=== PATIENT | female | born 1980 | race Caucasian/White ===

== ENCOUNTER → 2020-08-31 15:35 | Outpatient (CLI) | payer OTHER, SELFPAY ==
[2020-08-31] MEDS: COVID-19 VACC(MODERNA-1)/PF 100 MCG/0.5 ML VIAL IM (15:47)
== END ==
PROVIDERS: Visit Provider Internal Medicine
DX: Z23 Encounter for immunization (principal)
CPT/HCPCS: 0011A; 91301

== ENCOUNTER → 2020-09-27 16:35 | Outpatient (CLI) | payer OTHER, SELFPAY ==
[2020-09-27] MEDS: COVID-19 VACC #2, MRNA(MOD) 100 MCG/0.5 ML VIAL IM (16:39)
== END ==
PROVIDERS: Visit Provider Internal Medicine
DX: Z23 Encounter for immunization (principal)
CPT/HCPCS: 0012A; 91301

== ENCOUNTER → 2023-09-11 08:09 | Outpatient (CLI) | payer OTHER, SELFPAY ==
--- NOTE | 2023-09-11 08:10 | DI.MG.S_ITS ---
BILATERAL DIGITAL SCREENING MAMMOGRAM 3D/2D WITH CAD: 09/11/2023 CLINICAL: Routine screening. Baseline exam. Family history of breast cancer. No prior exams were available for comparison. Both breasts are heterogeneously dense, which may obscure small masses (category c / 51-75% glandular tissue). Current study was also evaluated with a Computer Aided Detection (CAD) system. No significant masses, calcifications, or other findings are seen in either breast. IMPRESSION: NEGATIVE There is no mammographic evidence of malignancy. A 1 year screening mammogram is recommended. Based on the Tyrer Cuzick model (a risk assessment model) the patient's lifetime risk is 12.9% and her 10 year risk is 1.9%. According to the ACR, ACS, and NCCN guidelines, an annual breast MRI exam along with mammogram is recommended if the patient's lifetime risk is 20% or greater. This exam was interpreted at Station ID: [id number]. NOTE: For mammograms, a report in lay terms will be sent to the patient. Approximately 15% of breast malignancies will not be visualized mammographically. In the management of a palpable breast mass, a negative mammogram must not discourage biopsy of a clinically suspicious lesion. Electronically Signed By: Thad pena/[email or web address]:09/11/2023 17:45:17 letter sent: Normal Exam ACR BI-RADS Category 1: Negative 3341F
== END ==
PROVIDERS: PCP Family Medicine; Referring Provider Family Medicine; Visit Provider Family Medicine
DX: Z12.31 Encounter for screening mammogram for malignant neoplasm of breast (principal); Z80.3 Family history of malignant neoplasm of breast; R92.333 Mammographic heterogeneous density, bilateral breasts
CPT/HCPCS: 77063; 77067

== ENCOUNTER → 2023-10-16 07:16 | Outpatient (CLI) | payer OTHER, SELFPAY ==
[2023-10-16 08:04] LABS: Add Manual Diff / Slide Review NO; Basophils Absolute Auto 0 /uL (0-100); Basophils Percent Auto 0.5 % (0-2); Eosinophils Absolute Auto 100 /uL (0-450); Eosinophils Percent Auto 1.4 % (2-4); Hematocrit 40.1 % (36-46); Lymphocytes Absolute Auto 1700 /uL (1100-4500); Lymphocytes Percent Auto 26.8 % (25-40); Mean Corpuscular HGB Conc 34.9 % (30-36); Mean Corpuscular Hemoglobin 33.7 PG (26-34); Mean Corpuscular Volume 96.4 fL (80-100); Monocytes Absolute Auto 600 /uL (0-900); Monocytes Percent Auto 8.7 % (3-14); Neutrophils Absolute Auto 4100 /uL (1500-7000); Neutrophils Percent Auto 62.6 % (50-75); Platelet Count 192 X10^3/uL (150-400); Red Blood Cell Count 4.16 X10^6/uL (4.0-5.2); White Blood Cell Count 6.5 X10^3/uL (4.5-11.0)
[2023-10-16 08:24] LABS: Alanine Aminotransferase 26 IU/L (<35); Albumin 4.5 g/dL (3.5-5.0); Albumin Globulin Ratio 1.7 (1.0-2.8); Alkaline Phosphatase 73 U/L (38-126); Aspartate Aminotransferase 26 IU/L (14-36); Bilirubin Total 0.9 mg/dL (0.2-1.3); Blood Urea Nitrogen 16 mg/dL (7-17); Calcium 9.4 mg/dL (8.4-10.2); Carbon Dioxide 23 mmol/L (22-32); Chloride 104 mmol/L (98-107); Cholesterol 166 mg/dL (140-199); Estimated Glomerular Filt Rate > 60 mL/min (>60); Globulin 2.7 g/dL (1.7-4.1); Glucose 78 mg/dL (70-100); HDL Cholesterol 80 mg/dL (40-60); HEMOLYSIS < 15 (0-50); LDL Cholesterol Calculated 76 mg/dL (<100); Potassium 3.3 mmol/L (3.4-5.1); Sodium 137 mmol/L (137-145); Total Protein 7.2 g/dL (6.3-8.2); Triglycerides 48 mg/dL (35-150)
[2023-10-16 08:55] LABS: TSH w/ Reflex to FT4 2.39 uIU/mL (0.47-4.68)
== END ==
PROVIDERS: PCP Family Medicine; Referring Provider Family Medicine; Visit Provider Family Medicine
DX: Z00.00 Encounter for general adult medical examination without abnormal findings (principal)
CPT/HCPCS: 36415; 80053; 80061; 84443; 85025

== ENCOUNTER 2024-02-28 11:15 | Inpatient (IN) | payer OTHER, SELFPAY ==
--- NOTE | 2024-02-28 | PATH_ITS ---
[facility] Accession Number: [id number] No. of containers..01 Tissue . 01 Material submitted: . appendix - APPENDIX . 01 Diagnosis: APPENDIX, APPENDECTOMY: Acute and periappendicitis. [facility] 03/02/2024 1040 Local . 01 Electronically signed: . Denise Schultz MD, Pathologist NPI- [id number] . 01 Gross description: . Received in formalin with two identifiers and appendix, is a love vermiform appendix 4.7 x 0.9 cm with mesoappendix extending out to 1.7 cm. The serosa is olve to brown and roughened with adherent material consistent with exudate. The margin is inked blue, and sectioning reveals the lumen to contain brown semi-solid material and averaging 0.3 cm in diameter. The pelletier average 0.4 cm thick with no perforation or lesions identified. Biochemical Engineer sections to include the margin, one-half of the bisected distal tip, and cross-section are submitted in cassette A1. ([id number]) /[facility] 03/01/2024 0856 Local . 01 Pathologist provided ICD-10: K35.80 . 01 CPT . 552770 Specimen Comment: A courtesy copy of this report has been sent to [phone] Performed at: [address] [address], [place], [place] [id number] MD Darrel Solares MD Phone: [phone]
[2024-02-28 11:34] VITALS: BP 123/58; PULSE 62; RESP 18; TEMP 36.9; O2SAT 100; BMI 22.1
[2024-02-28] MEDS: ONDANSETRON 4 MG/2 ML INJ IV (11:59)
[2024-02-28 12:02] LABS: Add Manual Diff / Slide Review NO; Basophils Absolute Auto 0 /uL (0-100); Basophils Percent Auto 0.2 % (0-2); Eosinophils Absolute Auto 0 /uL (0-450); Hematocrit 40.9 % (36-46); Hemoglobin 14.2 g/dL (12.0-16.0); Lymphocytes Absolute Auto 1400 /uL (1100-4500); Lymphocytes Percent Auto 7.6 % (25-40); Mean Corpuscular HGB Conc 34.8 % (30-36); Mean Corpuscular Hemoglobin 33.3 PG (26-34); Mean Corpuscular Volume 95.5 fL (80-100); Monocytes Absolute Auto 1200 /uL (0-900); Monocytes Percent Auto 6.7 % (3-14); Neutrophils Absolute Auto 15300 /uL (1500-7000); Neutrophils Percent Auto 85.5 % (50-75); Platelet Count 192 X10^3/uL (150-400); Red Blood Cell Count 4.28 X10^6/uL (4.0-5.2); Red Cell Distribution Width 12.7 % (11.6-14.8); White Blood Cell Count 17.9 X10^3/uL (4.5-11.0)
[2024-02-28 12:13] LABS: Alanine Aminotransferase 29 IU/L (<35); Albumin 4.4 g/dL (3.5-5.0); Albumin Globulin Ratio 1.6 (1.0-2.8); Alkaline Phosphatase 83 U/L (38-126); Aspartate Aminotransferase 21 IU/L (14-36); BUN Creatinine Ratio 16.7 (6-22); Bilirubin Total 1.4 mg/dL (0.2-1.3); Blood Urea Nitrogen 13 mg/dL (7-17); Calcium 8.9 mg/dL (8.4-10.2); Carbon Dioxide 27 mmol/L (22-32); Chloride 104 mmol/L (98-107); Estimated Glomerular Filt Rate > 60 mL/min (>60); Globulin 2.8 g/dL (1.7-4.1); Glucose 114 mg/dL (70-100); HEMOLYSIS < 15 (0-50); Lipase 58 U/L (23-300); Potassium 3.7 mmol/L (3.4-5.1); Sodium 137 mmol/L (137-145); Total Protein 7.2 g/dL (6.3-8.2)
--- NOTE | 2024-02-28 12:34 | ED.ABDPAIN ---
HPI - Abdominal Pain <Osvaldo Davila PA-C - Last Filed: 02/28/24 15:09> General Chief Complaint: Abdominal Pain Stated Complaint: LRQ Abd Pain Time Seen by Provider: 02/28/24 12:34 Source: patient Mode of arrival: Ambulatory History of Present Illness HPI narrative: This is a 43-year-old female presents emergency department due to epigastric pain onset yesterday which she was radiated to her right lower quadrant with multiple episodes of nausea and vomiting. States she was had chills. Denies any dysuria, hematuria, urinary frequency, or any other concerning signs or symptoms. Has not eaten today. Denies any medical or surgical history. Related Data Allergies Allergy/AdvReac Type Severity Reaction Status Date / Time Pertussis Vaccines Allergy Severe High Verified 02/28/24 11:39 fever, hypoxia Review of Systems <Osvaldo Davila PA-C - Last Filed: 02/28/24 15:09> Review of Systems Narrative: GENERAL: Denies chills, fatigue, malaise, fever, sweats. HEENT: Denies sinus pain, ear pain, sore throat, difficulty swallowing, dizziness. RESPIRATORY: Denies dyspnea, cough, wheezing, hemoptysis, sputum. CARDIOVASCULAR: Denies chest pain, palpitations, orthopnea, edema, GASTROINTESTINAL: Reports nausea and vomiting as well as right lower quadrant pain nausea, vomiting, abdominal pain, denies diarrhea, constipation, melena. : Denies dysuria, frequency, incontinence, hematuria, urinary retention. MUSCULOSKELETAL: denies weakness, joint pain, or bony pain SKIN: Denies rash, skin lesions, or other NEUROLOGIC: Denies weakness, headache, numbness, change in speech, confusion, seizures, incoordination. PSYCHIATRIC: No concerning psychosocial issues. 12 point review of systems is negative except for those stated above Patient History <Osvaldo Davila PA-C - Last Filed: 02/28/24 15:09> Medical History Encounter for well adult exam without abnormal findings Plantar fasciitis (~2019) Chicken pox (~1987) Hamstring tightness of both lower extremities (~2019) Surgical History History of episiotomy Family History Father Hyperlipidemia Grandfather Mental health problem Stroke History of emphysema Grandmother Breast cancer Grandfather History of heart disease Grandmother Hypertension History of kidney cancer Hyperlipidemia Dementia Social History Smoking Status: Never smoker alcohol intake: never substance use type: does not use Smoking Status: Never smoker Substance Use Type: does not use Exam <TROY Humphreys Last Filed: 02/28/24 15:09> Narrative Exam Narrative: GENERAL: Well-developed patient, in mild distress. HEAD: Atraumatic. Normocephalic. EYES: Pupils equal round and reactive. Extraocular motions intact. No scleral icterus. No injection or drainage. ENT: Nose without bleeding, purulent drainage. Throat without erythema, tonsillar hypertrophy or exudate. Airway patent. NECK: Trachea midline. Non tender EXTREMITIES: No edema or joint tenderness. NEURO: AOx3. SKIN: No rash or erythema of visible areas Abdomen: Tenderness to palpation to the right lower quadrant Initial Vital Signs Initial Vital Signs: Vital Signs Temperature 98.5 F 02/28/24 11:34 Pulse Rate 62 02/28/24 11:34 Respiratory Rate 18 02/28/24 11:34 Blood Pressure 123/58 L 02/28/24 11:34 Pulse Oximetry 100 02/28/24 11:34 Oxygen Delivery Method Room Air 02/28/24 11:34 <Lj Islas DO - Last Filed: 02/28/24 15:26> Initial Vital Signs Initial Vital Signs: Vital Signs Temperature 98.5 F 02/28/24 11:34 Pulse Rate 62 02/28/24 11:34 Respiratory Rate 18 02/28/24 11:34 Blood Pressure 123/58 L 02/28/24 11:34 Pulse Oximetry 100 02/28/24 11:34 Oxygen Delivery Method Room Air 02/28/24 11:34 Course <TROY Humphreys Last Filed: 02/28/24 15:09> Orders Ordered: ED Orders 02/28/24 11:50 CRP [C-Reactive Protein Quant] Stat Complete Blood Count AUTO DIFF Stat Comprehensive Metabolic Panel Stat Lactate (Lactic Acid) Stat Lipase Stat 02/28/24 12:48 CT abdomen pelvis w con Stat 02/28/24 13:35 Type and Screen Stat 02/28/24 13:45 Blood Culture Stat 02/28/24 13:49 Test Urine Stat UA dip and micro [Urinalysis and Microscopic] Stat 02/28/24 14:31 Education, smoking cessation ONGOING Acetaminophen (Acetaminophen 325 Mg Tablet) 650 mg PO Q6H PRN PRN Reason: Fever/Mild Pain (1-3) Hydromorphone HCl (Hydromorphone 0.5 Mg Inj) 0.5 mg IV Q2H PRN PRN Reason: Pain, Severe (7-10) Dextrose/Sodium Chloride (Dextrose 5%-0.45% Ns) 1,000 mls @ 100 mls/hr IV CONT VEDA Last Admin: 02/28/24 15:08 Dose: 100 mls/hr Documented By: RUBY Piperacillin Sod/Tazobactam (Sod 3.375 gm/ Sodium Chloride) 100 mls @ 25 mls/hr IV Q8H VEDA Stop: 03/02/24 21:59 Ibuprofen (Ibuprofen 600 Mg Tablet) 600 mg PO Q6H PRN PRN Reason: Fever/Mild Pain (1-3) Naloxone HCl (Naloxone 0.4 Mg/Ml Vial) 0.2 mg IV Q2MIN PRN PRN Reason: Opiate Reversal Ondansetron HCl (Ondansetron 4 Mg/2 Ml Inj) 4 mg IV NOW PRN PRN Reason: Nausea And Vomiting Last Admin: 02/28/24 11:59 Dose: 4 mg Documented By: FLAVIO Ondansetron HCl (Ondansetron 4 Mg Odt) 4 mg PO NOW PRN PRN Reason: Nausea And Vomiting Oxycodone HCl (Oxycodone Ir 5 Mg Tablet) 5 mg PO Q3H PRN PRN Reason: Pain, Moderate (4-6) Discontinued Medications Piperacillin Sod/Tazobactam (Sod 4.5 gm/ Sodium Chloride) 100 mls @ 200 mls/hr IV NOW ONE Stop: 02/28/24 13:22 Last Infusion: 02/28/24 14:22 Dose: Infused Documented By: Admin: 02/28/24 13:47 Dose: 200 mls/hr Documented By: RUBY Vital Signs Vital signs: Vital Signs - 8 hr 02/28/24 11:34 02/28/24 13:57 Temperature 98.5 F 97.9 F Pulse Rate 62 63 Respiratory Rate 18 16 Blood Pressure 123/58 L 113/71 Pulse Oximetry 100 100 Oxygen Delivery Method Room Air Room Air <Lj Islas, DO - Last Filed: 02/28/24 15:26> Orders Ordered: ED Orders 02/28/24 11:50 CRP [C-Reactive Protein Quant] Stat Complete Blood Count AUTO DIFF Stat Comprehensive Metabolic Panel Stat Lactate (Lactic Acid) Stat Lipase Stat 02/28/24 12:48 CT abdomen pelvis w con Stat 02/28/24 13:35 Type and Screen Stat 02/28/24 13:45 Blood Culture Stat 02/28/24 13:49 Test Urine Stat UA dip and micro [Urinalysis and Microscopic] Stat 02/28/24 14:31 Education, smoking cessation ONGOING Acetaminophen (Acetaminophen 325 Mg Tablet) 650 mg PO Q6H PRN PRN Reason: Fever/Mild Pain (1-3) Hydromorphone HCl (Hydromorphone 0.5 Mg Inj) 0.5 mg IV Q2H PRN PRN Reason: Pain, Severe (7-10) Dextrose/Sodium Chloride (Dextrose 5%-0.45% Ns) 1,000 mls @ 100 mls/hr IV CONT VEDA Last Admin: 02/28/24 15:08 Dose: 100 mls/hr Documented By: SB Piperacillin Sod/Tazobactam (Sod 3.375 gm/ Sodium Chloride) 100 mls @ 25 mls/hr IV Q8H VEDA Stop: 03/02/24 21:59 Ibuprofen (Ibuprofen 600 Mg Tablet) 600 mg PO Q6H PRN PRN Reason: Fever/Mild Pain (1-3) Naloxone HCl (Naloxone 0.4 Mg/Ml Vial) 0.2 mg IV Q2MIN PRN PRN Reason: Opiate Reversal Ondansetron HCl (Ondansetron 4 Mg/2 Ml Inj) 4 mg IV NOW PRN PRN Reason: Nausea And Vomiting Last Admin: 02/28/24 11:59 Dose: 4 mg Documented By: RB Ondansetron HCl (Ondansetron 4 Mg Odt) 4 mg PO NOW PRN PRN Reason: Nausea And Vomiting Oxycodone HCl (Oxycodone Ir 5 Mg Tablet) 5 mg PO Q3H PRN PRN Reason: Pain, Moderate (4-6) Discontinued Medications Piperacillin Sod/Tazobactam (Sod 4.5 gm/ Sodium Chloride) 100 mls @ 200 mls/hr IV NOW ONE Stop: 02/28/24 13:22 Last Infusion: 02/28/24 14:22 Dose: Infused Documented By: Admin: 02/28/24 13:47 Dose: 200 mls/hr Documented By: RUBY Vital Signs Vital signs: Vital Signs - 8 hr 02/28/24 11:34 02/28/24 13:57 Temperature 98.5 F 97.9 F Pulse Rate 62 63 Respiratory Rate 18 16 Blood Pressure 123/58 L 113/71 Pulse Oximetry 100 100 Oxygen Delivery Method Room Air Room Air MDM - Abdominal Pain <Osvaldo Davila PA-C - Last Filed: 02/28/24 15:09> Lab Data 02/28/24 11:50 02/28/24 11:50 Labs: Lab Results 02/28/24 02/28/24 02/28/24 Range/Units 11:50 13:35 13:49 WBC 17.9 H (4.5-11.0) X10^3/uL RBC 4.28 (4.0-5.2) X10^6/uL Hgb 14.2 (12.0-16.0) g/dL Hct 40.9 (36-46) % MCV 95.5 (80-100) fL MCH 33.3 (26-34) PG MCHC 34.8 (30-36) % RDW 12.7 (11.6-14.8) % Plt Count 192 (150-400) X10^3/uL Neut % (Auto) 85.5 H (50-75) % Lymph % (Auto) 7.6 L (25-40) % Bartholomew % (Auto) 6.7 (3-14) % Eos % (Auto) 0.0 L (2-4) % Baso % (Auto) 0.2 (0-2) % Neut # (Auto) 49326 H (8668-1820) /uL Lymph # (Auto) 1400 (8571-9861) /uL Bartholomew # (Auto) 1200 H (0-900) /uL Eos # (Auto) 0 (0-450) /uL Baso # (Auto) 0 (0-100) /uL Sodium 137 (137-145) mmol/L Potassium 3.7 (3.4-5.1) mmol/L Chloride 104 (98-107) mmol/L Carbon Dioxide 27 (22-32) mmol/L BUN 13 (7-17) mg/dL Creatinine 0.78 (0.52-1.04) mg/dL Estimated GFR > 60 (>60) mL/min BUN/Creatinine Ratio 16.7 (6-22) Glucose 114 H (70-100) mg/dL Lactate 1.6 (0.7-2.1) mmol/L Calcium 8.9 (8.4-10.2) mg/dL Total Bilirubin 1.4 H (0.2-1.3) mg/dL AST 21 (14-36) IU/L ALT 29 (<35) IU/L Alkaline Phosphatase 83 (38-126) U/L C-Reactive Protein 3.1 H (<1.0) mg/dL Total Protein 7.2 (6.3-8.2) g/dL Albumin 4.4 (3.5-5.0) g/dL Globulin 2.8 (1.7-4.1) g/dL Albumin/Globulin Ratio 1.6 (1.0-2.8) Lipase 58 (23-300) U/L Urine Color Cancelled Urine Appearance Urine pH Ur Specific [place] Urine Protein Urine Glucose (UA) Urine Ketones Urine Occult Blood Urine Nitrate Urine Bilirubin Urine Urobilinogen Ur Leukocyte Esterase Urine RBC (0-5/HPF) Urine WBC (0-5/HPF) Ur Squamous Epith Cells (0-5/HPF) Urine Bacteria (None) Ur Culture Indicated? Vol Urine Centrifuged Urine Test (Negative) Blood Type A Positive Antibody Screen Negative 02/28/24 02/28/24 02/28/24 Range/Units 13:49 13:49 13:49 WBC (4.5-11.0) X10^3/uL RBC (4.0-5.2) X10^6/uL Hgb (12.0-16.0) g/dL Hct (36-46) % MCV (80-100) fL MCH (26-34) PG MCHC (30-36) % RDW (11.6-14.8) % Plt Count (150-400) X10^3/uL Neut % (Auto) (50-75) % Lymph % (Auto) (25-40) % Bartholomew % (Auto) (3-14) % Eos % (Auto) (2-4) % Baso % (Auto) (0-2) % Neut # (Auto) (7251-3903) /uL Lymph # (Auto) (4477-8506) /uL Bartholomew # (Auto) (0-900) /uL Eos # (Auto) (0-450) /uL Baso # (Auto) (0-100) /uL Sodium (137-145) mmol/L Potassium (3.4-5.1) mmol/L Chloride (98-107) mmol/L Carbon Dioxide (22-32) mmol/L BUN (7-17) mg/dL Creatinine (0.52-1.04) mg/dL Estimated GFR (>60) mL/min BUN/Creatinine Ratio (6-22) Glucose (70-100) mg/dL Lactate (0.7-2.1) mmol/L Calcium (8.4-10.2) mg/dL Total Bilirubin (0.2-1.3) mg/dL AST (14-36) IU/L ALT (<35) IU/L Alkaline Phosphatase (38-126) U/L C-Reactive Protein (<1.0) mg/dL Total Protein (6.3-8.2) g/dL Albumin (3.5-5.0) g/dL Globulin (1.7-4.1) g/dL Albumin/Globulin Ratio (1.0-2.8) Lipase (23-300) U/L Urine Color Yellow Urine Appearance Cancelled Clear Urine pH Cancelled 6.5 Ur Specific [place] Cancelled Urine Protein Urine Glucose (UA) Urine Ketones Urine Occult Blood Urine Nitrate Urine Bilirubin Urine Urobilinogen Ur Leukocyte Esterase Urine RBC (0-5/HPF) Urine WBC (0-5/HPF) Ur Squamous Epith Cells (0-5/HPF) Urine Bacteria (None) Ur Culture Indicated? Vol Urine Centrifuged Urine Test (Negative) Blood Type Antibody Screen 02/28/24 02/28/24 02/28/24 Range/Units 13:49 13:49 13:49 WBC (4.5-11.0) X10^3/uL RBC (4.0-5.2) X10^6/uL Hgb (12.0-16.0) g/dL Hct (36-46) % MCV (80-100) fL MCH (26-34) PG MCHC (30-36) % RDW (11.6-14.8) % Plt Count (150-400) X10^3/uL Neut % (Auto) (50-75) % Lymph % (Auto) (25-40) % Bartholomew % (Auto) (3-14) % Eos % (Auto) (2-4) % Baso % (Auto) (0-2) % Neut # (Auto) (4490-5979) /uL Lymph # (Auto) (2323-7013) /uL Bartholomew # (Auto) (0-900) /uL Eos # (Auto) (0-450) /uL Baso # (Auto) (0-100) /uL Sodium (137-145) mmol/L Potassium (3.4-5.1) mmol/L Chloride (98-107) mmol/L Carbon Dioxide (22-32) mmol/L BUN (7-17) mg/dL Creatinine (0.52-1.04) mg/dL Estimated GFR (>60) mL/min BUN/Creatinine Ratio (6-22) Glucose (70-100) mg/dL Lactate (0.7-2.1) mmol/L Calcium (8.4-10.2) mg/dL Total Bilirubin (0.2-1.3) mg/dL AST (14-36) IU/L ALT (<35) IU/L Alkaline Phosphatase (38-126) U/L C-Reactive Protein (<1.0) mg/dL Total Protein (6.3-8.2) g/dL Albumin (3.5-5.0) g/dL Globulin (1.7-4.1) g/dL Albumin/Globulin Ratio (1.0-2.8) Lipase (23-300) U/L Urine Color Urine Appearance Urine pH Ur Specific [place] <=1.005 Urine Protein Cancelled Negative Urine Glucose (UA) Cancelled Negative Urine Ketones Cancelled Urine Occult Blood Urine Nitrate Urine Bilirubin Urine Urobilinogen Ur Leukocyte Esterase Urine RBC (0-5/HPF) Urine WBC (0-5/HPF) Ur Squamous Epith Cells (0-5/HPF) Urine Bacteria (None) Ur Culture Indicated? Vol Urine Centrifuged Urine Test (Negative) Blood Type Antibody Screen 02/28/24 02/28/24 02/28/24 Range/Units 13:49 13:49 13:49 WBC (4.5-11.0) X10^3/uL RBC (4.0-5.2) X10^6/uL Hgb (12.0-16.0) g/dL Hct (36-46) % MCV (80-100) fL MCH (26-34) PG MCHC (30-36) % RDW (11.6-14.8) % Plt Count (150-400) X10^3/uL Neut % (Auto) (50-75) % Lymph % (Auto) (25-40) % Bartholomew % (Auto) (3-14) % Eos % (Auto) (2-4) % Baso % (Auto) (0-2) % Neut # (Auto) (8054-5227) /uL Lymph # (Auto) (4898-9943) /uL Bartholomew # (Auto) (0-900) /uL Eos # (Auto) (0-450) /uL Baso # (Auto) (0-100) /uL Sodium (137-145) mmol/L Potassium (3.4-5.1) mmol/L Chloride (98-107) mmol/L Carbon Dioxide (22-32) mmol/L BUN (7-17) mg/dL Creatinine (0.52-1.04) mg/dL Estimated GFR (>60) mL/min BUN/Creatinine Ratio (6-22) Glucose (70-100) mg/dL Lactate (0.7-2.1) mmol/L Calcium (8.4-10.2) mg/dL Total Bilirubin (0.2-1.3) mg/dL AST (14-36) IU/L ALT (<35) IU/L Alkaline Phosphatase (38-126) U/L C-Reactive Protein (<1.0) mg/dL Total Protein (6.3-8.2) g/dL Albumin (3.5-5.0) g/dL Globulin (1.7-4.1) g/dL Albumin/Globulin Ratio (1.0-2.8) Lipase (23-300) U/L Urine Color Urine Appearance Urine pH Ur Specific [place] Urine Protein Urine Glucose (UA) Urine Ketones Negative Urine Occult Blood Cancelled Negative Urine Nitrate Cancelled Negative Urine Bilirubin Cancelled Urine Urobilinogen Ur Leukocyte Esterase Urine RBC (0-5/HPF) Urine WBC (0-5/HPF) Ur Squamous Epith Cells (0-5/HPF) Urine Bacteria (None) Ur Culture Indicated? Vol Urine Centrifuged Urine Test (Negative) Blood Type Antibody Screen 02/28/24 02/28/24 02/28/24 Range/Units 13:49 13:49 13:49 WBC (4.5-11.0) X10^3/uL RBC (4.0-5.2) X10^6/uL Hgb (12.0-16.0) g/dL Hct (36-46) % MCV (80-100) fL MCH (26-34) PG MCHC (30-36) % RDW (11.6-14.8) % Plt Count (150-400) X10^3/uL Neut % (Auto) (50-75) % Lymph % (Auto) (25-40) % Bartholomew % (Auto) (3-14) % Eos % (Auto) (2-4) % Baso % (Auto) (0-2) % Neut # (Auto) (0489-0383) /uL Lymph # (Auto) (0986-2149) /uL Bartholomew # (Auto) (0-900) /uL Eos # (Auto) (0-450) /uL Baso # (Auto) (0-100) /uL Sodium (137-145) mmol/L Potassium (3.4-5.1) mmol/L Chloride (98-107) mmol/L Carbon Dioxide (22-32) mmol/L BUN (7-17) mg/dL Creatinine (0.52-1.04) mg/dL Estimated GFR (>60) mL/min BUN/Creatinine Ratio (6-22) Glucose (70-100) mg/dL Lactate (0.7-2.1) mmol/L Calcium (8.4-10.2) mg/dL Total Bilirubin (0.2-1.3) mg/dL AST (14-36) IU/L ALT (<35) IU/L Alkaline Phosphatase (38-126) U/L C-Reactive Protein (<1.0) mg/dL Total Protein (6.3-8.2) g/dL Albumin (3.5-5.0) g/dL Globulin (1.7-4.1) g/dL Albumin/Globulin Ratio (1.0-2.8) Lipase (23-300) U/L Urine Color Urine Appearance Urine pH Ur Specific [place] Urine Protein Urine Glucose (UA) Urine Ketones Urine Occult Blood Urine Nitrate Urine Bilirubin Negative Urine Urobilinogen Cancelled 1.0 Ur Leukocyte Esterase Cancelled Negative Urine RBC None seen (0-5/HPF) Urine WBC None seen (0-5/HPF) Ur Squamous Epith Cells 0-1 /hpf (0-5/HPF) Urine Bacteria None seen (None) Ur Culture Indicated? Cult not indicated Vol Urine Centrifuged 10ml (spun) Urine Test Negative (Negative) Blood Type Antibody Screen Imaging Data CT scan - abdomen/pelvis: Radiologist's Impression: [address] [address] [address] Scan Report Signed Patient: Katie Goldberg MR#: [id number] : 1980 Acct:[id number] Age/Sex: 43 / F Date of Service: 02/28/24 Loc: ED Accession Number: [id number] Procedure: CT abdomen pelvis w con Ordering Provider: Osvaldo Davila P.A-C PROCEDURE: CT ABDOMEN PELVIS W CON INDICATIONS: RLQ pain TECHNIQUE: After the administration of intravenous contrast, axial sections acquired from the lung bases to the pubic symphysis. Coronal and sagittal reformats were performed. For radiation dose reduction, the following was used: automated exposure control, adjustment of mA and/or kV according to patient size. COMPARISON: None. FINDINGS: Image quality: Diagnostic. Lower Chest: No significant findings. ABDOMEN: Liver: No solid mass. Steatosis. Gallbladder: No radiopaque gallstones or wall thickening. Biliary ducts: No biliary dilation. Pancreas: No ductal dilation. Spleen: Size is within normal limits. Adrenal Glands: No adrenal nodules. Kidneys and Ureters: No hydronephrosis. No solid mass. No complex renal cystic lesion which requires follow up. Stomach and Bowel: Normal colonic caliber, without significant wall thickening. Appendix is enlarged measuring 1 cm. There is mild hyperemia within the wall as well as minimal periappendiceal stranding and fluid. No appendicoliths. No evidence of perforation. Diverticulosis Peritoneum: Mild dependent pelvic fluid. No free air. Ventral Wall: No significant ventral hernia. Abdominal Nodes: No retroperitoneal or mesenteric adenopathy by size criteria. Vessels: Aorta and inferior vena cava are normal in size. PELVIS: Pelvic Organs: Unremarkable. Bladder: No bladder wall thickening, accounting for underdistention. Pelvic Nodes: No enlarged lymph nodes. Miscellaneous: No inguinal hernias are seen. Bones: No aggressive osseous abnormality. IMPRESSION: Enlarged appendix with periappendiceal inflammatory change most consistent with acute appendicitis. No perforation or appendicolith. Mild dependent pelvic fluid. The above findings were discussed with Dr. Lj Islas on 02/28/2024 at 1:20 p.m. Dictated by: Jannet Duarte M.D. on 02/28/2024 at 13:17 Approved by: Jannet Duarte M.D. on 02/28/2024 at 13:20 MDM Narrative Medical decision making narrative: ED course: This is a 41-year-old female presents to the emergency department due to epigastric and right lower quadrant abdominal pain. CT was ordered which showed acute appendicitis. Patient was given Zosyn. CBC shows leukocytosis as well as an elevated CRP. Patient was not eaten today. Dr. Godfrey, general surgery, was consulted and we will take the patient to the OR there today and will accept the patient for admission. CC: Right lower quadrant pain Complicating co-morbidities: None Data collected from: Previous notes Medical records reviewed: Patient was not been to this emergency department the past. No pertinent medical history. Differential considered, but not limited to: Appendicitis, gastroenteritis Exam documented above, pertinent findings include: Right lower quadrant tenderness to palpation Lab Test results independently reviewed as above. Pertinent findings: Elevated CRP, leukocytosis Imaging studies independently reviewed: CT showed signs of appendicitis Scores Used: None MIPS Elements: None Consultations: None Treatments: Zosyn Re-evaluations: None Discussion: Discussed plan with the patient was comfortable with the plan Diagnosis: Acute appendicitis Disposition: see below, along with detailed discharge instructions that have been reviewed with patient as well as indications for ED re-evaluation and additional outpatient follow up <Lj Islas, DO - Last Filed: 02/28/24 15:26> Lab Data Attestation: I reviewed the patient's lab results. Labs: Lab Results 02/28/24 02/28/24 02/28/24 Range/Units 11:50 13:35 13:49 WBC 17.9 H (4.5-11.0) X10^3/uL RBC 4.28 (4.0-5.2) X10^6/uL Hgb 14.2 (12.0-16.0) g/dL Hct 40.9 (36-46) % MCV 95.5 (80-100) fL MCH 33.3 (26-34) PG MCHC 34.8 (30-36) % RDW 12.7 (11.6-14.8) % Plt Count 192 (150-400) X10^3/uL Neut % (Auto) 85.5 H (50-75) % Lymph % (Auto) 7.6 L (25-40) % Bartholomew % (Auto) 6.7 (3-14) % Eos % (Auto) 0.0 L (2-4) % Baso % (Auto) 0.2 (0-2) % Neut # (Auto) 64472 H (8935-1067) /uL Lymph # (Auto) 1400 (4205-4350) /uL Bartholomew # (Auto) 1200 H (0-900) /uL Eos # (Auto) 0 (0-450) /uL Baso # (Auto) 0 (0-100) /uL Sodium 137 (137-145) mmol/L Potassium 3.7 (3.4-5.1) mmol/L Chloride 104 (98-107) mmol/L Carbon Dioxide 27 (22-32) mmol/L BUN 13 (7-17) mg/dL Creatinine 0.78 (0.52-1.04) mg/dL Estimated GFR > 60 (>60) mL/min BUN/Creatinine Ratio 16.7 (6-22) Glucose 114 H (70-100) mg/dL Lactate 1.6 (0.7-2.1) mmol/L Calcium 8.9 (8.4-10.2) mg/dL Total Bilirubin 1.4 H (0.2-1.3) mg/dL AST 21 (14-36) IU/L ALT 29 (<35) IU/L Alkaline Phosphatase 83 (38-126) U/L C-Reactive Protein 3.1 H (<1.0) mg/dL Total Protein 7.2 (6.3-8.2) g/dL Albumin 4.4 (3.5-5.0) g/dL Globulin 2.8 (1.7-4.1) g/dL Albumin/Globulin Ratio 1.6 (1.0-2.8) Lipase 58 (23-300) U/L Urine Color Cancelled Urine Appearance Urine pH Ur Specific [place] Urine Protein Urine Glucose (UA) Urine Ketones Urine Occult Blood Urine Nitrate Urine Bilirubin Urine Urobilinogen Ur Leukocyte Esterase Urine RBC (0-5/HPF) Urine WBC (0-5/HPF) Ur Squamous Epith Cells (0-5/HPF) Urine Bacteria (None) Ur Culture Indicated? Vol Urine Centrifuged Urine Test (Negative) Blood Type A Positive Antibody Screen Negative 02/28/24 02/28/24 02/28/24 Range/Units 13:49 13:49 13:49 WBC (4.5-11.0) X10^3/uL RBC (4.0-5.2) X10^6/uL Hgb (12.0-16.0) g/dL Hct (36-46) % MCV (80-100) fL MCH (26-34) PG MCHC (30-36) % RDW (11.6-14.8) % Plt Count (150-400) X10^3/uL Neut % (Auto) (50-75) % Lymph % (Auto) (25-40) % Bartholomew % (Auto) (3-14) % Eos % (Auto) (2-4) % Baso % (Auto) (0-2) % Neut # (Auto) (0351-7608) /uL Lymph # (Auto) (5419-1707) /uL Bartholomew # (Auto) (0-900) /uL Eos # (Auto) (0-450) /uL Baso # (Auto) (0-100) /uL Sodium (137-145) mmol/L Potassium (3.4-5.1) mmol/L Chloride (98-107) mmol/L Carbon Dioxide (22-32) mmol/L BUN (7-17) mg/dL Creatinine (0.52-1.04) mg/dL Estimated GFR (>60) mL/min BUN/Creatinine Ratio (6-22) Glucose (70-100) mg/dL Lactate (0.7-2.1) mmol/L Calcium (8.4-10.2) mg/dL Total Bilirubin (0.2-1.3) mg/dL AST (14-36) IU/L ALT (<35) IU/L Alkaline Phosphatase (38-126) U/L C-Reactive Protein (<1.0) mg/dL Total Protein (6.3-8.2) g/dL Albumin (3.5-5.0) g/dL Globulin (1.7-4.1) g/dL Albumin/Globulin Ratio (1.0-2.8) Lipase (23-300) U/L Urine Color Yellow Urine Appearance Cancelled Clear Urine pH Cancelled 6.5 Ur Specific [place] Cancelled Urine Protein Urine Glucose (UA) Urine Ketones Urine Occult Blood Urine Nitrate Urine Bilirubin Urine Urobilinogen Ur Leukocyte Esterase Urine RBC (0-5/HPF) Urine WBC (0-5/HPF) Ur Squamous Epith Cells (0-5/HPF) Urine Bacteria (None) Ur Culture Indicated? Vol Urine Centrifuged Urine Test (Negative) Blood Type Antibody Screen 02/28/24 02/28/24 02/28/24 Range/Units 13:49 13:49 13:49 WBC (4.5-11.0) X10^3/uL RBC (4.0-5.2) X10^6/uL Hgb (12.0-16.0) g/dL Hct (36-46) % MCV (80-100) fL MCH (26-34) PG MCHC (30-36) % RDW (11.6-14.8) % Plt Count (150-400) X10^3/uL Neut % (Auto) (50-75) % Lymph % (Auto) (25-40) % Bartholomew % (Auto) (3-14) % Eos % (Auto) (2-4) % Baso % (Auto) (0-2) % Neut # (Auto) (7416-0075) /uL Lymph # (Auto) (9177-7216) /uL Bartholomew # (Auto) (0-900) /uL Eos # (Auto) (0-450) /uL Baso # (Auto) (0-100) /uL Sodium (137-145) mmol/L Potassium (3.4-5.1) mmol/L Chloride (98-107) mmol/L Carbon Dioxide (22-32) mmol/L BUN (7-17) mg/dL Creatinine (0.52-1.04) mg/dL Estimated GFR (>60) mL/min BUN/Creatinine Ratio (6-22) Glucose (70-100) mg/dL Lactate (0.7-2.1) mmol/L Calcium (8.4-10.2) mg/dL Total Bilirubin (0.2-1.3) mg/dL AST (14-36) IU/L ALT (<35) IU/L Alkaline Phosphatase (38-126) U/L C-Reactive Protein (<1.0) mg/dL Total Protein (6.3-8.2) g/dL Albumin (3.5-5.0) g/dL Globulin (1.7-4.1) g/dL Albumin/Globulin Ratio (1.0-2.8) Lipase (23-300) U/L Urine Color Urine Appearance Urine pH Ur Specific [place] <=1.005 Urine Protein Cancelled Negative Urine Glucose (UA) Cancelled Negative Urine Ketones Cancelled Urine Occult Blood Urine Nitrate Urine Bilirubin Urine Urobilinogen Ur Leukocyte Esterase Urine RBC (0-5/HPF) Urine WBC (0-5/HPF) Ur Squamous Epith Cells (0-5/HPF) Urine Bacteria (None) Ur Culture Indicated? Vol Urine Centrifuged Urine Test (Negative) Blood Type Antibody Screen 02/28/24 02/28/24 02/28/24 Range/Units 13:49 13:49 13:49 WBC (4.5-11.0) X10^3/uL RBC (4.0-5.2) X10^6/uL Hgb (12.0-16.0) g/dL Hct (36-46) % MCV (80-100) fL MCH (26-34) PG MCHC (30-36) % RDW (11.6-14.8) % Plt Count (150-400) X10^3/uL Neut % (Auto) (50-75) % Lymph % (Auto) (25-40) % Bar[place]omew % (Auto) (3-14) % Eos % (Auto) (2-4) % Baso % (Auto) (0-2) % Neut # (Auto) (4974-2207) /uL Lymph # (Auto) ([id number]) /uL [place]w # (Auto) (0-900) /uL Eos # (Auto) (0-450) /uL Baso # (Auto) (0-100) /uL Sodium (137-145) mmol/L Potassium (3.4-5.1) mmol/L Chloride (98-107) mmol/L Carbon Dioxide (22-32) mmol/L BUN (7-17) mg/dL Creatinine (0.52-1.04) mg/dL Estimated GFR (>60) mL/min BUN/Creatinine Ratio (6-22) Glucose (70-100) mg/dL Lactate (0.7-2.1) mmol/L Calcium (8.4-10.2) mg/dL Total Bilirubin (0.2-1.3) mg/dL AST (14-36) IU/L ALT (<35) IU/L Alkaline Phosphatase (38-126) U/L C-Reactive Protein (<1.0) mg/dL Total Protein (6.3-8.2) g/dL Albumin (3.5-5.0) g/dL Globulin (1.7-4.1) g/dL Albumin/Globulin Ratio (1.0-2.8) Lipase (23-300) U/L Urine Color Urine Appearance Urine pH Ur Specific [place] Urine Protein Urine Glucose (UA) Urine Ketones Negative Urine Occult Blood Cancelled Negative Urine Nitrate Cancelled Negative Urine Bilirubin Cancelled Urine Urobilinogen Ur Leukocyte Esterase Urine RBC (0-5/HPF) Urine WBC (0-5/HPF) Ur Squamous Epith Cells (0-5/HPF) Urine Bacteria (None) Ur Culture Indicated? Vol Urine Centrifuged Urine Test (Negative) Blood Type Antibody Screen 02/28/24 02/28/24 02/28/24 Range/Units 13:49 13:49 13:49 WBC (4.5-11.0) X10^3/uL RBC (4.0-5.2) X10^6/uL Hgb (12.0-16.0) g/dL Hct (36-46) % MCV (80-100) fL MCH (26-34) PG MCHC (30-36) % RDW (11.6-14.8) % Plt Count (150-400) X10^3/uL Neut % (Auto) (50-75) % Lymph % (Auto) (25-40) % [place]w % (Auto) (3-14) % Eos % (Auto) (2-4) % Baso % (Auto) (0-2) % Neut # (Auto) (2576-8384) /uL Lymph # (Auto) (2373-6662) /uL [place] # (Auto) (0-900) /uL Eos # (Auto) (0-450) /uL Baso # (Auto) (0-100) /uL Sodium (137-145) mmol/L Potassium (3.4-5.1) mmol/L Chloride (98-107) mmol/L Carbon Dioxide (22-32) mmol/L BUN (7-17) mg/dL Creatinine (0.52-1.04) mg/dL Estimated GFR (>60) mL/min BUN/Creatinine Ratio (6-22) Glucose (70-100) mg/dL Lactate (0.7-2.1) mmol/L Calcium (8.4-10.2) mg/dL Total Bilirubin (0.2-1.3) mg/dL AST (14-36) IU/L ALT (<35) IU/L Alkaline Phosphatase (38-126) U/L C-Reactive Protein (<1.0) mg/dL Total Protein (6.3-8.2) g/dL Albumin (3.5-5.0) g/dL Globulin (1.7-4.1) g/dL Albumin/Globulin Ratio (1.0-2.8) Lipase (23-300) U/L Urine Color Urine Appearance Urine pH Ur Specific [place] Urine Protein Urine Glucose (UA) Urine Ketones Urine Occult Blood Urine Nitrate Urine Bilirubin Negative Urine Urobilinogen Cancelled 1.0 Ur Leukocyte Esterase Cancelled Negative Urine RBC None seen (0-5/HPF) Urine WBC None seen (0-5/HPF) Ur Squamous Epith Cells 0-1 /hpf (0-5/HPF) Urine Bacteria None seen (None) Ur Culture Indicated? Cult not indicated Vol Urine Centrifuged 10ml (spun) Urine Test Negative (Negative) Blood Type Antibody Screen Discharge Plan Departure Patient Disposition: Admitted to Surgery Clinical Impression: Acute appendicitis Admit Date/Time: 02/28/24 15:06 Admit Provider: Sesar Godfrey ED Sign-out <Lj Islas DO - Last Filed: 02/28/24 15:26> Cosign ED Attending Cosignature Attestation: Dr Islas Co-Sign Statement: I was available for consultation during this patient's emergency department visit. This chart is signed by myself for administrative purposes only. I did not have direct contact with this patient during this visit. They were seen independently by the APC.
--- NOTE | 2024-02-28 12:48 | DI.CT.S_ITS ---
PROCEDURE: CT ABDOMEN PELVIS W CON INDICATIONS: RLQ pain TECHNIQUE: After the administration of intravenous contrast, axial sections acquired from the lung bases to the pubic symphysis. Coronal and sagittal reformats were performed. For radiation dose reduction, the following was used: automated exposure control, adjustment of mA and/or kV according to patient size. COMPARISON: None. FINDINGS: Image quality: Diagnostic. Lower Chest: No significant findings. ABDOMEN: Liver: No solid mass. Steatosis. Gallbladder: No radiopaque gallstones or wall thickening. Biliary ducts: No biliary dilation. Pancreas: No ductal dilation. Spleen: Size is within normal limits. Adrenal Glands: No adrenal nodules. Kidneys and Ureters: No hydronephrosis. No solid mass. No complex renal cystic lesion which requires follow up. Stomach and Bowel: Normal colonic caliber, without significant wall thickening. Appendix is enlarged measuring 1 cm. There is mild hyperemia within the wall as well as minimal periappendiceal stranding and fluid. No appendicoliths. No evidence of perforation. Diverticulosis Peritoneum: Mild dependent pelvic fluid. No free air. Ventral Wall: No significant ventral hernia. Abdominal Nodes: No retroperitoneal or mesenteric adenopathy by size criteria. Vessels: Aorta and inferior vena cava are normal in size. PELVIS: Pelvic Organs: Unremarkable. Bladder: No bladder wall thickening, accounting for underdistention. Pelvic Nodes: No enlarged lymph nodes. Miscellaneous: No inguinal hernias are seen. Bones: No aggressive osseous abnormality. IMPRESSION: Enlarged appendix with periappendiceal inflammatory change most consistent with acute appendicitis. No perforation or appendicolith. Mild dependent pelvic fluid. The above findings were discussed with Dr. Lj Islas on 02/28/2024 at 1:20 p.m. Dictated by: Jannet Duarte M.D. on 02/28/2024 at 13:17 Approved by: Jannet Duarte M.D. on 02/28/2024 at 13:20
[2024-02-28 13:02] LABS: Lactate (Lactic Acid) 1.6 mmol/L (0.7-2.1)
[2024-02-28 13:05] LABS: C-Reactive Protein Quant 3.1 mg/dL (<1.0)
[2024-02-28] MEDS: PIPERACILLIN/TAZO 4.5 GM in SODIUM CHLORIDE 0.9% 100 ML IV (13:47)
[2024-02-28 13:57] VITALS: BP 113/71; PULSE 63; RESP 16; TEMP 36.6; O2SAT 100
[2024-02-28 14:02] LABS: Appearance Urine UA CLEAR; Bilirubin Urine UA NEGATIVE (NEGATIVE); Color Urine UA YELLOW; Glucose Urine UA NEGATIVE (Negative); Ketones Urine UA NEGATIVE (NEGATIVE); Leukocyte Esterase Urine UA NEGATIVE (NEGATIVE); Nitrite Urine UA NEGATIVE (Negative); Occult Blood Urine UA NEGATIVE (Negative); Protein Urine UA NEGATIVE (Negative); Specific Gravity Urine UA <=1.005 (1.000-1.035)
[2024-02-28 14:13] LABS: Bacteria Urine None Seen; Culture Indicated Urine Cult Not Indicated; RBC Urine None Seen (0-5/HPF); Squamous Epithelial Cell Urine 0-1 /HPF (0-5/HPF); Urine Volume 10mL (spun); WBC Urine None Seen (0-5/HPF); pH Urine UA 6.5 (4.5-8.0)
--- NOTE | 2024-02-28 14:33 | PM.HP.1 ---
History of Present Illness History of Present Illness Date Patient Seen: 02/28/24 Time Patient Seen: 16:24 Chief complaint: LRQ Abd Pain Narrative: 43-year-old healthy woman presents to the hospital with complaint of abdominal pain. 24 hours ago she had generalized abdominal discomfort and associated emesis. Last night became localized to the right lower quadrant. Today she was seen in the emergency department WBC [id number], with left shift. CT abdomen pelvis consistent with acute uncomplicated appendicitis. No prior abdominal surgery. She received Zosyn in the emergency department. [facility] Medical History Encounter for well adult exam without abnormal findings Plantar fasciitis (~2019) Chicken pox (~1987) Hamstring tightness of both lower extremities (~2019) Surgical History History of episiotomy Family History Father Hyperlipidemia Grandfather Mental health problem Stroke History of emphysema Grandmother Breast cancer Grandfather History of heart disease Grandmother Hypertension History of kidney cancer Hyperlipidemia Dementia Social History Smoking Status: Never smoker alcohol intake: never substance use type: does not use Meds Home Medications and Allergies Home Medications Medication Instructions Recorded Confirmed Type tramadol 50 mg tablet 50 mg PO Q6H PRN pain #15 tabs 02/28/24 Rx Allergies Allergy/AdvReac Type Severity Reaction Status Date / Time Pertussis Vaccines Allergy Severe High Verified 02/28/24 11:39 fever, hypoxia Exam Vital Signs (past 8 hours): - 02/28/24 11:34 02/28/24 13:57 Temperature 98.5 F 97.9 F Pulse Rate 62 63 Respiratory Rate 18 16 Blood Pressure 123/58 L 113/71 Pulse Oximetry 100 100 Oxygen Delivery Method Room Air Room Air Oxygen Delivery Method Room Air Narrative Exam Narrative: GENERAL: A well nourished, well developed adult woman, resting comfortably, in no acute distress. HEENT: Normocephalic, atraumatic. No scleral icterus CHEST: Rising symmetrically. No audible wheezes CARDIOVASCULAR: Warm and well perfused. Regular rate ABDOMEN: Focal peritonitis right lower quadrant EXTREMITIES: Normal tone and without edema. NEUROLOGIC: Moving all extremities spontaneously. No gross motor deficits. Objective Labs 02/28/24 11:50 02/28/24 11:50 Labs: Laboratory Results - last 24 hr 02/28/24 02/28/24 02/28/24 11:50 13:35 13:49 WBC 17.9 H RBC 4.28 Hgb 14.2 Hct 40.9 MCV 95.5 MCH 33.3 MCHC 34.8 RDW 12.7 Plt Count 192 Neut % (Auto) 85.5 H Lymph % (Auto) 7.6 L [place] % (Auto) 6.7 Eos % (Auto) 0.0 L Baso % (Auto) 0.2 Neut # (Auto) 70841 H Lymph # (Auto) 1400 [place] # (Auto) 1200 H Eos # (Auto) 0 Baso # (Auto) 0 Sodium 137 Potassium 3.7 Chloride 104 Carbon Dioxide 27 BUN 13 Creatinine 0.78 Estimated GFR > 60 BUN/Creatinine Ratio 16.7 Glucose 114 H Lactate 1.6 Calcium 8.9 Total Bilirubin 1.4 H AST 21 ALT 29 Alkaline Phosphatase 83 C-Reactive Protein 3.1 H Total Protein 7.2 Albumin 4.4 Globulin 2.8 Albumin/Globulin Ratio 1.6 Lipase 58 Urine Color Cancelled Urine Appearance Urine pH Ur Specific [place] Urine Protein Urine Glucose (UA) Urine Ketones Urine Occult Blood Urine Nitrate Urine Bilirubin Urine Urobilinogen Ur Leukocyte Esterase Urine RBC Urine WBC Ur Squamous Epith Cells Urine Bacteria Ur Culture Indicated? Vol Urine Centrifuged Blood Type A Positive Antibody Screen Negative 02/28/24 02/28/24 02/28/24 13:49 13:49 13:49 WBC RBC Hgb Hct MCV MCH MCHC RDW Plt Count Neut % (Auto) Lymph % (Auto) [place] % (Auto) Eos % (Auto) Baso % (Auto) Neut # (Auto) Lymph # (Auto) [place] # (Auto) Eos # (Auto) Baso # (Auto) Sodium Potassium Chloride Carbon Dioxide BUN Creatinine Estimated GFR BUN/Creatinine Ratio Glucose Lactate Calcium Total Bilirubin AST ALT Alkaline Phosphatase C-Reactive Protein Total Protein Albumin Globulin Albumin/Globulin Ratio Lipase Urine Color Yellow Urine Appearance Cancelled Clear Urine pH Cancelled 6.5 Ur Specific [place] Cancelled Urine Protein Urine Glucose (UA) Urine Ketones Urine Occult Blood Urine Nitrate Urine Bilirubin Urine Urobilinogen Ur Leukocyte Esterase Urine RBC Urine WBC Ur Squamous Epith Cells Urine Bacteria Ur Culture Indicated? Vol Urine Centrifuged Blood Type Antibody Screen 02/28/24 02/28/24 02/28/24 13:49 13:49 13:49 WBC RBC Hgb Hct MCV MCH MCHC RDW Plt Count Neut % (Auto) Lymph % (Auto) [place] % (Auto) Eos % (Auto) Baso % (Auto) Neut # (Auto) Lymph # (Auto) [place] # (Auto) Eos # (Auto) Baso # (Auto) Sodium Potassium Chloride Carbon Dioxide BUN Creatinine Estimated GFR BUN/Creatinine Ratio Glucose Lactate Calcium Total Bilirubin AST ALT Alkaline Phosphatase C-Reactive Protein Total Protein Albumin Globulin Albumin/Globulin Ratio Lipase Urine Color Urine Appearance Urine pH Ur Specific [place] <=1.005 Urine Protein Cancelled Negative Urine Glucose (UA) Cancelled Negative Urine Ketones Cancelled Urine Occult Blood Urine Nitrate Urine Bilirubin Urine Urobilinogen Ur Leukocyte Esterase Urine RBC Urine WBC Ur Squamous Epith Cells Urine Bacteria Ur Culture Indicated? Vol Urine Centrifuged Blood Type Antibody Screen 02/28/24 02/28/24 02/28/24 13:49 13:49 13:49 WBC RBC Hgb Hct MCV MCH MCHC RDW Plt Count Neut % (Auto) Lymph % (Auto) [place] % (Auto) Eos % (Auto) Baso % (Auto) Neut # (Auto) Lymph # (Auto) [place] # (Auto) Eos # (Auto) Baso # (Auto) Sodium Potassium Chloride Carbon Dioxide BUN Creatinine Estimated GFR BUN/Creatinine Ratio Glucose Lactate Calcium Total Bilirubin AST ALT Alkaline Phosphatase C-Reactive Protein Total Protein Albumin Globulin Albumin/Globulin Ratio Lipase Urine Color Urine Appearance Urine pH Ur Specific [place] Urine Protein Urine Glucose (UA) Urine Ketones Negative Urine Occult Blood Cancelled Negative Urine Nitrate Cancelled Negative Urine Bilirubin Cancelled Urine Urobilinogen Ur Leukocyte Esterase Urine RBC Urine WBC Ur Squamous Epith Cells Urine Bacteria Ur Culture Indicated? Vol Urine Centrifuged Blood Type Antibody Screen 02/28/24 02/28/24 02/28/24 13:49 13:49 13:49 WBC RBC Hgb Hct MCV MCH MCHC RDW Plt Count Neut % (Auto) Lymph % (Auto) [place] % (Auto) Eos % (Auto) Baso % (Auto) Neut # (Auto) Lymph # (Auto) [place] # (Auto) Eos # (Auto) Baso # (Auto) Sodium Potassium Chloride Carbon Dioxide BUN Creatinine Estimated GFR BUN/Creatinine Ratio Glucose Lactate Calcium Total Bilirubin AST ALT Alkaline Phosphatase C-Reactive Protein Total Protein Albumin Globulin Albumin/Globulin Ratio Lipase Urine Color Urine Appearance Urine pH Ur Specific [place] Urine Protein Urine Glucose (UA) Urine Ketones Urine Occult Blood Urine Nitrate Urine Bilirubin Negative Urine Urobilinogen Cancelled 1.0 Ur Leukocyte Esterase Cancelled Negative Urine RBC None seen Urine WBC None seen Ur Squamous Epith Cells 0-1 /hpf Urine Bacteria None seen Ur Culture Indicated? Cult not indicated Vol Urine Centrifuged 10ml (spun) Blood Type Antibody Screen Assessment & Plan Assessment and plan (1) Acute appendicitis: Status: Acute Assessment & Plan narrative: 43-year-old healthy woman with symptoms and radiographic findings consistent with acute uncomplicated appendicitis. Extensive discussion with the patient in regards to management both with antibiotic therapy and appendectomy. Following discussion her preference is to proceed with surgery. Overview of the operation was discussed. Operative risks including hemorrhage, infection, staple line leak, damage to surrounding structures conversion to open were reviewed. Her questions have been answered and she is in agreement with this plan. She provides her written and verbal consent to proceed. I anticipate that she will be able to discharge home following surgery today. Time-Based Coding :: [TOTAL MINUTES] spent with patient and on the chart (including review of chart, obtaining history, exam, reviewing outside data, placing orders, documenting exam and treatment plan, and counseling patient) on [DATE].
[2024-02-28 14:34] LABS: Pregnancy Test Urine Negative (Negative)
[2024-02-28] MEDS: DEXTROSE 5%-0.45% NS 1,000 ML 100 ML IV (15:08)
[2024-02-28] MEDS: ACETAMINOPHEN IV 1,000 MG/100 ML VIAL 400 MG IV (17:00)
--- NOTE | 2024-02-28 17:12 | SUR.OPER ---
Supine on padded OR bed, head on pillow, safety belt at thigh, left arm padded and tucked at side. Right arm secured on padded arm board <90 degrees abduction. Legs uncrossed.
[2024-02-28] MEDS: BUPIVACAINE 0.25% (PF) VIAL 30 ML INJ (17:30)
[2024-02-28 17:36] VITALS: BP 113/74; PULSE 60; RESP 14; TEMP 36.4; O2SAT 99
[2024-02-28 17:41] VITALS: BP 117/72; PULSE 59; RESP 12; O2SAT 99
[2024-02-28 17:46] VITALS: BP 122/73; PULSE 53; RESP 16; O2SAT 100
[2024-02-28 18:00] VITALS: BP 111/70; PULSE 51; RESP 12; O2SAT 99
[2024-02-28] MEDS: OXYCODONE IR 5 MG TABLET PO (18:07)
--- NOTE | 2024-03-02 16:18 | PM.OP.1 ---
Operative Date/Time/Diagnoses Date of procedure: 02/28/24 Time of procedure: 16:18 Pre-op diagnosis: Acute appendicitis Post-op diagnosis: same Procedure & Clinicians Procedure: Laparoscopic appendectomy Same procedure as scheduled: Yes Indications: 43-year-old woman with symptoms and radiographic findings consistent with acute appendicitis Surgeon: Sesar Godfrey Click Yes if Unassisted: Yes Anesthesia Type: General Operative Notes Findings: Acute non perforated appendicitis Specimen(s): other (Appendix) Estimated Blood Loss (mL): 20 Procedure in detail: Patient was brought to the operating room placed supine on the table. Bilateral lower extremity compression devices were applied. Anesthesia was induced and they intubated with an endotracheal tube. They received 3.375 g of Zosyn prior to skin incision. The left arm was tucked and appropriately padded. They were prepped and draped in sterile fashion. Time-out was performed. An infraumbilical incision was made the umbilical stalk was grasped and elevated and incision was made and the abdomen was entered atraumatically. A 12 mm balloon trocar was then placed through the incision and pneumoperitoneum of 14 mm Hg was established. The scope was then inserted and the abdomen inspected, there was no evidence of injury upon entry. Two 5 mm ports were placed under direct visualization, one in the left lower quadrant and second in the lower midline. A thorough laparoscopic evaluation was performed inspecting all four quadrants. The patient was then tilted right side up. The small bowel was then swept to the upper aspect of the abdomen. The tenie were followed to the base of the cecum where the appendix was identified. The appendix was was mobilized. It was acutely inflamed but not perforated. The appendix was grasped and a window within the mesentery was made at the base of the appendix using the [place] dissector with care to avoid injuring the cecum. The mesoappendix was then divided using the endo-stapler with a staple length of 2.5 mm-white load. The mesenteric staple line was inspected for hemostasis. The appendix was then amputated flush at the cecum using the endo-stapler blue load. The specimen was retrieved using a endoscopic retrieval bag through the 10 mm infra-umbilical port. The right paracolic gutter and the pouch of [place] were irrigated The 5 mm ports were then removed under direct visualization. The umbilical fascial incision was closed with 0 Vicryl in a figure-eight fashion. The skin wounds were irrigated and closed with 4-0 Monocryl followed by the application of Dermabond. Sponge instrument count at the end of the operation was correct. The patient tolerated procedure well was extubated and transferred to the postoperative care unit in stable condition. Complications: none Post-operative Condition: stable Disposition: Acute Care
== END 2024-02-28 18:23 | disposition home or self-care (01) | DRG 399 ==
LOC: ED 12:34 → AC 15:07
PROVIDERS: Emergency Medicine; Admitting Provider Surgery; Emergency Provider Physician Assistant Medical; PCP Family Medicine; Referring Provider Physician Assistant Medical; Visit Provider Surgery
PROC: 0DTJ4ZZ Resection of Appendix, Percutaneous Endoscopic Approach (ICD-10-PCS; CPT 44970; principal; 2024-02-28 16:30)
DX: K35.80 Unspecified acute appendicitis (principal)
CPT/HCPCS: 36415; 44970; 74177; 80053; 81001; 81025; 83605; 83690; 85025; 86140; 86850; 86900; 86901; 87040; 96365; 99222; 99284; J0136; J0330; J1100; J1885; J2250; J2405; J2543; J2704; J3010; Q9967